=== PATIENT | male | born 1955 | race Two or more races ===

== ENCOUNTER 2023-05-19 09:17 | Emergency (ER) | payer MEDICARE ==
[~2023-05-19] VITALS: Ht 182.9 cm; Wt 77.3 kg
[2023-05-19] MEDS ORDERED: PENICILLIN VK PO (09:40)
[2023-05-19 09:48] LABS: COVID AG,FIA SOURCE NASAL SWAB
[2023-05-19 09:51] LABS: HEMATOCRIT 42.5 % (41-53); HEMOGLOBIN 13.5 g/dL (13.5-17.5); MEAN CORPUSCULAR HEMOGLOBIN 28.7 pg (26.0-34.0); MEAN CORPUSCULAR HGB CONC 31.8 G/dL (31.0-37.0); MEAN CORPUSCULAR VOLUME 90 fL (80-100); PLATELET COUNT (AUTO) 138 K/uL (150-450); RED CELL DISTRIBUTION WIDTH 13.2 % (11.5-14.5)
[2023-05-19 09:59] LABS: ANION GAP 8 mmol/L (8-16); CARBON DIOXIDE 28 mmol/L (22-29); CHLORIDE 102 mmol/L (98-107); CREATININE 1.19 mg/dL (0.60-1.30); GLOMERULAR FILTR. RATE CALC > 60 mL/min (>60); GLUCOSE,RANDOM 150 mg/dL (70-110); POTASSIUM 4.2 mmol/L (3.5-5.1); SODIUM SERUM 138 mmol/L (136-145)
[2023-05-19 10:05] LABS: ALANINE AMINOTRANSFERASE 9 U/L (12-78); ALBUMIN 3.5 g/dL (3.4-5.0); ALKALINE PHOSPHATASE 77 U/L (46-116); ASPARTATE AMINOTRANSFERASE 6 U/L (15-37); BILIRUBIN,TOTAL 1.3 mg/dL (0.1-1.0); TOTAL PROTEIN, SERUM 6.5 g/dL (6.4-8.2)
[2023-05-19 10:11] LABS: INFLUENZA TYPE A NEGATIVE FOR TYPE A (NEGATIVE); INFLUENZA TYPE B NEGATIVE FOR TYPE B (NEGATIVE)
[2023-05-19 10:26] LABS: BAND NEUTROPHILS % (MANUAL) 1 % (0-5); LYMPHOCYTES % (MANUAL) 97 % (22-44); MONOCYTES % (MANUAL) 2 % (2-9)
[2023-05-19 10:28] LABS: RAPID GROUP A STREP NEGATIVE (NEGATIVE)
[2023-05-19] MEDS ORDERED: IOHEXOL 350 MG/ML 100 ML VIAL ONE (10:55)
[2023-05-19] MEDS ORDERED: SODIUM CHLORIDE 0.9% 100 ML ONE (10:55)
[2023-05-19 14:16] VITALS: BP 112/63; PULSE 85; RESP 18; TEMP 98.5
[2023-05-19] MEDS ORDERED: PredniSONE 20 MG TABLET PO ONE (15:00)
== END 2023-05-19 15:47 | disposition home or self-care (01) ==
LOC: EMS 09:23
DX: C95.90 Leukemia, unspecified not having achieved remission (principal); J02.9 Acute pharyngitis, unspecified; Z98.890 Other specified postprocedural states; Z20.822 Contact with and (suspected) exposure to COVID-19
CPT/HCPCS: 99285; 70491; 71045; 87426; 80053; 84484; 85025; 87430; 87804; 36415; 71260; 72193; 74160; 93005; J7512; Q9967; J7050